=== PATIENT | male | born 1950 | race Caucasian/White ===

== ENCOUNTER 2019-06-17 07:18 | Day surgery (SDC) | payer MEDICARE, OTHER ==
[2019-06-17] MEDS ORDERED: Lidocaine 2% 100 MG/5 ML Syringe IVPUSH ONE (07:19)
[2019-06-17] MEDS ORDERED: Propofol 200 MG/20 ML SDV IV ONE (07:19)
[2019-06-17] MEDS ORDERED: Sodium Chloride 0.9% 10 ML Syringe FLUSH PRN (07:30)
[2019-06-17] MEDS ORDERED: Lactated Ringers 1,000 ML IV SCH (07:30)
--- NOTE | 2019-06-17 10:23 | PCM.OPNOTE ---
- General Post-Op/Procedure Note Date of Surgery/Procedure: 06/17/19 Operative Procedure(s): c scope with bx Findings: ascending colon polyp Pre Op Diagnosis: screeing Post-Op Diagnosis: ascending colon polyp. diverticulosis Anesthesia Technique: MAC Primary Surgeon: Yevgeniy Thakur Anesthesia Provider: Oleksandr Fernandez Pathology: ascending colon polyp Complications: None Condition: Good Free Text/Narrative:: see dictation
--- NOTE | 2019-06-17 15:14 | OR ---
DATE OF OPERATION: 06/17/2019 SURGEON: Yevgeniy Thakur MD PROCEDURE PERFORMED: Colonoscopy with cold forceps biopsy. PREOPERATIVE DIAGNOSIS: Need for screening C scope. POSTOPERATIVE DIAGNOSIS: Ascending colon polyp and diverticulosis of the colon. INDICATIONS FOR PROCEDURE: This is a 69-year-old white male, referred for screening colonoscopy, was offered and accepted same. DESCRIPTION OF OPERATION: After an excellent IV sedation was administered, digital rectal exam was performed. No marked abnormality was noted. Flexible colonoscope was inserted and advanced to the cecum. Prep was excellent. The following findings were noted. Ascending colon, just above the ileocecal valve, a small 2 mm polyp biopsied and sent for permanent. Transverse colon, unremarkable. Descending colon, occasional diverticula. Sigmoid, occasional diverticula. Rectum and anus, unremarkable. Results by letter. The patient tolerated the procedure well. /[id number] RHONDA/MELANIE
== END 2019-06-17 10:39 | disposition home or self-care (01) ==
LOC: FB.SDS 07:18
PROVIDERS: ATTEND Surgery
DX: Z12.11 Encounter for screening for malignant neoplasm of colon (principal); D12.2 Benign neoplasm of ascending colon; K57.30 Diverticulosis of large intestine without perforation or abscess without bleeding; I10 Essential (primary) hypertension; I69.353 Hemiplegia and hemiparesis following cerebral infarction affecting right non-dominant side; E78.5 Hyperlipidemia, unspecified; Z79.82 Long term (current) use of aspirin; Z79.899 Other long term (current) drug therapy
CPT/HCPCS: 45380; 88305; J2001; J2704; J7120

== ENCOUNTER 2024-08-05 06:09 | Day surgery (SDC) | payer MEDICARE ==
[2024-08-05] MEDS ORDERED: Midazolam 1 MG/ML 2 ML SDV IV ONE (06:10)
[2024-08-05] MEDS ORDERED: Propofol 200 MG/20 ML SDV IV ONE (06:10)
[2024-08-05] MEDS ORDERED: fentaNYL 100 MCG/2 ML SDV IV ONE (06:10)
[2024-08-05] MEDS ORDERED: Sodium Chloride 0.9% 10 ML Syringe FLUSH PRN (06:15)
[2024-08-05] MEDS: Lactated Ringers 1,000 ML IV SCH (07:10)
[2024-08-05] MEDS: Simethicone Drops 40 MG/0.6 ML 30 ML Bottle ONE (07:20)
== END 2024-08-05 08:54 | disposition home or self-care (01) ==
LOC: FB.SDS 06:09
PROVIDERS: ATTEND Surgery
DX: Z12.11 Encounter for screening for malignant neoplasm of colon (principal); D12.2 Benign neoplasm of ascending colon; K57.30 Diverticulosis of large intestine without perforation or abscess without bleeding; I10 Essential (primary) hypertension; E78.5 Hyperlipidemia, unspecified; Z87.891 Personal history of nicotine dependence; Z79.82 Long term (current) use of aspirin; Z79.899 Other long term (current) drug therapy; Z86.0101 Personal history of adenomatous and serrated colon polyps
CPT/HCPCS: 00811; 88305; 99100; A9270-GY; J2250; J2704; J3010; J7120